=== PATIENT | female | born 1980 | race Caucasian/White ===

== ENCOUNTER → 2017-03-08 | Day surgery (SDC) | payer BC, OTHER ==
[~2017-03-08] MED LIST: ACETAMINOPHEN/HYDROcodone 325 MG/5 MG TAB ONE; LACTATED RINGER'S 1000 ML INJ 1,000 ML ONE; LIDOCAINE 1%/EPINEPHrine 1:100,000 SOLN 20 ML VIAL ONE; MEPERIDINE HCL 25 MG/ML VIAL ONE; MIDAZOLAM HCL 2 MG/2 ML VIAL ONE; ONDANSETRON HCL 4 MG/2 ML VIAL IV PUSH ONE; PREN0.01 PO; PROPOFOL 200 MG/20 ML AMP IV ONE; Z.0.NO CURRENT MEDS; ceFAZolin 2 GM PREMIX 50 ML ONE
--- NOTE | 2017-03-08 12:34 | TN ---
cc: SHASTA CHAPMAN M.D. DATE OF SURGERY 03/08/2017 PREOPERATIVE DIAGNOSIS Right breast microcalcifications. POSTOPERATIVE DIAGNOSIS Right breast microcalcifications. PROCEDURE Right breast needle localized lumpectomy, hidden scar technique. SURGEON Shasta Chapman MD SCREW REMOVER Fiorella Stallworth, BEEF KILLER ANESTHESIA General with laryngeal mask. INDICATIONS A very pleasant 36-year-old woman who found a palpable lump in her right breast. She underwent imaging and microcalcifications pleomorphic in nature were discovered in the right breast at about the 7 o'clock position, 6 cm from the nipple on mammography. They were unable to perform sterotactic biopsy due to the posterior nature of the microcalcifications and therefore she was referred for surgical lumpectomy. INTRAOPERATIVE FINDINGS Successful removal of at least a great majority of the microcalcifications as seen on specimen mammography by Dr. Pineda. ESTIMATED BLOOD LOSS Minimal. NOTE This procedure was assisted by my nurse practitioner. The skill set of an BEEF KILLER was medically necessary to provide appropriate visualization and retraction and improve the efficiency of the surgical procedure. The shale processing technician was at the back table providing appropriate instrumentation while the nurse practitioner directly assisted me through the entirety of the procedure. DESCRIPTION OF PROCEDURE IN DETAIL The patient was identified as February, taken to the operating room and placed in supine position. She had undergone right breast needle localization. Sequential compression devices were placed on the bilateral lower extremities. Following induction of adequate general anesthesia with a laryngeal mask, the right breast was prepped and draped in the usual sterile fashion with Betadine. A time-out procedure was performed. Following completion of the time-out procedure to everyone's satisfaction within the room, the proposed right-sided periareolar incision was made with a marking pen laterally and local anesthetic was placed generously beneath the proposed incision and the proposed area of dissection. The incision was carried out with a scalpel and hemostasis was controlled with electrocautery. Dissection continued posteriorly through vary dense breast tissue until the localization needle was identified within the wound. It was divided within the wound with a wire turning machine operator and a generous portion of tissue around the distal localization needle was from surrounding breast tissues using electrocautery and cutting mode of the electrocautery through the very dense breast tissue. The specimen was marked with a short stitch superior interior, a long stitch lateral posterior and sent for imaging with the above-mentioned results and then to pathology. Palpation within the wound demonstrated no palpably abnormal tissue outside of the very dense, fibrous breast tissue. The wound was irrigated copiously with saline. There was no evidence of bleeding. About 5 cc of local anesthetic was placed within the wound and the lumpectomy cavity was actually very deep within the wound, just superficial to the chest wall musculature. The wound was closed in two layers with 3-0 Vicryl and 4-0 Monocryl in the skin and dressing was applied with Mastisol and 1/2-inch brown Steri-Strips, gauze and Tegaderm. The patient tolerated the procedure without apparent complication. Sponge, needle and instrument counts were correct at the end of the case. MD JOSEFINA Li/ABBY /12:15 PM /12:20 PM
== END | disposition home or self-care (01) ==
LOC: ESDC 08:43
PROVIDERS: ATTEND Surgery Trauma Surgery
DX: D05.11 Intraductal carcinoma in situ of right breast (principal)
CPT/HCPCS: 00400; 19125; 88307; J0690; J2175; J2250; J2405; J3010; J7120; 88361

== ENCOUNTER → 2017-03-22 | Day surgery (SDC) | payer BC ==
[~2017-03-22] MED LIST changes: +HEPARIN SODIUM - IV 10,000 UNITS/10 ML VIAL ONE; +PROPOFOL 100 MG/10 ML INJ IV ONE; -PROPOFOL 200 MG/20 ML AMP IV ONE; +PROPOFOL 500 MG/50 ML BTL IV ONE; +SODIUM CHLORIDE 0.9% INJ 10 ML ONE
--- NOTE | 2017-03-22 17:10 | TN ---
cc: RIC CHAPMAN M.D. DATE OF SURGERY 03/22/2017 PREOPERATIVE DIAGNOSIS Right breast cancer. POSTOPERATIVE DIAGNOSIS Right breast cancer. PROCEDURE Left subclavian Hudqbq-E-Ilei placement with intraoperative fluoroscopy. SURGEON Dr. Ric Chapman ANESTHESIA Local 1% lidocaine with epinephrine plus TIVA. 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 Plans were made for neoadjuvant chemotherapy. Qkhnhq-O-Lbnz placement was indicated. INTRAOPERATIVE FINDINGS Successful placement of left subclavian Infusaport with the tip of the catheter in the distal superior vena cava. Port function was tested. There was easy blood return and forward concentrated heparinized saline flush flowed through the port. Portable chest x-ray is pending. ESTIMATED BLOOD LOSS Less than 5 ml. DESCRIPTION OF PROCEDURE IN DETAIL The patient identified as February, taken to operating room and placed in the supine position. Sequential compression devices were placed on bilateral lower extremities. Following IV sedation by anesthesia, a rolled sheet was placed beneath shoulder blades and the patient was placed in Trendelenburg position. The upper chest and neck were prepped and draped in usual sterile fashion with Betadine. A time-out procedure was performed. Following completion of time-out procedure everyone's satisfaction in the room, 1% lidocaine with epinephrine was placed in the left subclavian position. The patient was placed in Trendelenburg position. The left subclavian vein was entered without difficulty using the introducer needle and the guidewire was advanced through the introducer needle into appropriate position as seen on C-arm fluoroscopy. Infusaport pocket was created. We make an incision in the skin at the guidewire exit site and dissection continued posteriorly to the pectoralis fascia. An Oapbnp-O-Lbsq pocket was developed with surgeon's finger and the Aipghj-U-Betb which had been flushed with heparinized saline was placed into the pocket with two 2-0 Prolene stay sutures. Catheter was cut to appropriate length as seen on C-arm fluoroscopy and a dilator and dilating sheath were placed over the guidewire. The dilator and the guidewire were removed and the catheter was fed through the dilating sheath which was then removed. The tip of the catheter was seen on the distal superior vena cava on C-arm fluoroscopy. Port function was tested and there was easy blood return and forward concentrated heparinized saline flush flow through the port. The Ohphts-E-Tzve pocket was closed in two layers using 3-0 Vicryl and 4-0 Monocryl. Dressing was applied with Mastisol and one-half inch brown Steri-Strips, gauze and Tegaderm. The patient tolerated the procedure without apparent complication. Sponge, needle and instrument counts were correct at the end of the case. MD JOSEFINA Li/KK /1:37 PM /5:00 PM
== END | disposition home or self-care (01) ==
LOC: ESDC 10:38
PROVIDERS: ATTEND Surgery Trauma Surgery
DX: Z45.2 Encounter for adjustment and management of vascular access device (principal); C50.911 Malignant neoplasm of unspecified site of right female breast
CPT/HCPCS: 00532; 36561; 77001; C1788; J0690; J1644; J2175; J2250; J2405; J3010; J7120

== ENCOUNTER → 2017-08-17 | Day surgery (SDC) | payer BC ==
[~2017-08-17] MED LIST changes: +ACETAMINOPHEN 1000 MG/100 ML 100 ML IV ONE; -ACETAMINOPHEN/HYDROcodone 325 MG/5 MG TAB ONE; +BACITRACIN IM FOR SOLN 50,000 UNIT VIAL ONE; +BUPIVACAINE LIPOSOME PF 1.3% 20 ML VIAL ONE; +BUPIVACAINE/EPINEPHRINE 0.25% 50 ML VIAL ONE; +GENTAMICIN SULFATE 80 MG/2 ML VIAL ONE; -HEPARIN SODIUM - IV 10,000 UNITS/10 ML VIAL ONE; +HYDROmorphone HCL PF 2 MG/ML VIAL ONE; +ISOSULFAN BLUE 50 MG/5 ML VIAL SQ ONE; +KETOROLAC TROMETHAMINE 30 MG/ML (IVP) VIAL IV PUSH ONE; -LIDOCAINE 1%/EPINEPHrine 1:100,000 SOLN 20 ML VIAL ONE; +LIDOCAINE 2%/EPINEPHrine PF 1:200,000 20ML SDV ONE; -MEPERIDINE HCL 25 MG/ML VIAL ONE; +MEPERIDINE HCL 50 MG/ML VIAL ONE; +PROMETHAZINE INJ 25 MG/ML VIAL ONE; -PROPOFOL 100 MG/10 ML INJ IV ONE; +PROPOFOL 200 MG/20 ML AMP IV ONE; -PROPOFOL 500 MG/50 ML BTL IV ONE; +SODIUM CHLORIDE 0.9% 20 ML VIAL ONE; -SODIUM CHLORIDE 0.9% INJ 10 ML ONE; +ceFAZolin INJ 1,000 MG VIAL ONE
--- NOTE | 2017-08-17 16:38 | TN ---
cc: ANDREA ANDRADE M.D. DATE OF SURGERY: 08/17/2017 PREOPERATIVE DIAGNOSIS Right breast cancer PROCEDURE: Left prophylactic mastectomy Removal of Port-A-Cath. Bilateral breast construction utilizing a tissue concrete gun operator, as well as a ACell dermal matrix, AlloDerm 6 x 16 thick. SURGEON Andrea Andrade MD FACS ANESTHESIA LMA general plus a total of 120 diluted 1% lidocaine epinephrine. ESTIMATED BLOOD LOSS: Minimal. DRAINS: Two drains per breast, a total of four including 2, 10 mm JPs and 2, 7 mm Rehan-Rachel drains. TISSUE COMPUTER NUMERICAL CONTROL MACHINIST IMPLANT DATA: Tissue concrete gun operator Allergan family, 123 SX total volume 500 capacity volume expanded today was 300 cc per side. SERIAL NUMBERS: Serial number of the right breast implant device [id number] Serial number of the left breast implant device [id number] PROCEDURE Detail she was properly consented, marked properly anesthetized the skin was sterilized with Betadine solution after the local anesthetic was infiltrated as a tumescent type. While Dr. Ric Fay performed on the right mastectomy I performed the following procedures and please refer to the dictation of his procedure. I began by directing attention to the left upper the supraclavicular area where the previous Port-A-Cath was placed. Through the same incision the port was found. The reservoir of the catheter was teased out without any further problems and the reservoir was removed without any difficulties after removing the Prolene suture that was previously placed. With this I proceeded to closed the wound in multiple 2-0 Monocryl suture layers in the dermis and subcu. Attention was directed thereafter to the left breast where utilizing a sun burst type of incision, sparing the areola I proceeded to perform a areola and skin sparing mastectomy. Our landmarks including the parasternal area second third intercostal space anterior axillary line 06/07 intercostal space. We preserved the pectoris major fascia. The specimen was sent to pathology with a superior short and long lateral suture for previous identification. The elevation of the pectoris major muscle took place after assuring meticulous hemostasis and release of the inferomedial fibers. The 6 x 16 AlloDerm was properly sutured at the base of the pectoris major muscle and then the tissue concrete gun operator was introduced. The pocket was closed once the tissue concrete gun operator was introduced utilizing the same 2-0 Monocryl sutures inferiorly and laterally the two drains were brought and secured in place with 2-0 Monocryl sutures expansion was done to 300 cc of that side. The wound was closed in as a pursestring type of procedure utilizing 2-0 Monocryl suture and Dermabond good viability was noticed at the end of this procedure. Attention was directed to the right breast where Dr. Fay has perform finished the mastectomy with the axillary node sampling. I proceeded with the re-closed the anatomical landmarks including the axillary content as well as the anterior axillary line. Same elevation of the pectoris major muscle took place and the release of the inferomedial fibers. I proceeded to perform the fixation of the 6 x 16 AlloDerm at the base of the pectoris major muscle the tissue concrete gun operator was introduced and then closed the pocket utilizing 2-0 Monocryl sutures. I also expanded to 300 cc. The wound was thereafter closed after putting two drains, a 10 and a 7 mm FLORIN respectively and secured utilizing the same 2-0 Monocryl suture. The drains were addressed utilizing a Biopatch and allopatch and Tegaderm and the surgical site was dressed with fluffs as well as tape. Overall the patient the procedure well. She was awakened, extubated in the operating room transferred back to postanesthesia care unit in stable conditions. No complications appreciated. The patient tolerated the procedure fairly well. MD SNEHAL Rico/geovanna /3:27 PM /3:37 PM RENETTA
--- NOTE | 2017-08-17 17:21 | TN ---
cc: SHASTA CHAPMAN M.D., SERGIO M. M.D. DEVERAS, RUBY ANNE E. M.D. Corrected Copy: 08/23/17 DATE OF SURGERY: 08/17/2017 PREOPERATIVE DIAGNOSIS: Locally advanced right breast cancer. POSTOPERATIVE DIAGNOSIS: Locally advanced right breast cancer. PROCEDURE: Injection blue dye right breast, right skin sparing mastectomy, right axillary sentinel lymph node biopsy. SURGEON Dr. Shasta Chapman PHARMACY CONSULTANT: Fiorella OROZCO ANESTHESIA: General. PROCEDURE This procedure was assisted by my nurse practitioner. This medical skill set of PAM was medically necessary to provide improved efficiency and safety and adequate visualization during this surgery. The surgical pathologist was at the back table providing appropriate instrumentation while the nurse practitioner directly assisted me through the entirety of the procedure. INDICATIONS FOR PROCEDURE Very pleasant 36-year-old woman who in February was diagnosed with an invasive poorly differentiated ductal carcinoma of the right breast. Imaging demonstrated findings consistent with diffuse right breast involvement with an increased risk of axillary ishaan involvement. She had Bpuehg-G-Zsvt placed on the left side and had neoadjuvant chemotherapy. Post therapy imaging demonstrated near-complete resolution of enhancement in the breast and no further lymphadenopathy in the right axilla. She presented for definitive surgical treatment with immediate reconstruction with Dr. Berumen as a more. Please refer to Dr. Andrade was the dictation for the details of his portions of the procedures. INTRAOPERATIVE FINDINGS Successful right skin sparing mastectomy with tissue sent with short stitch superior anterior long stitch lateral posterior. Right axillary sentinel lymph nodes five of them removed. #1 ten second count 1153 #2 10-second count 496. #3 10 second count 906. They were sent together with a short stitch on #1 a medium length suture. On #2 a long suture on #3. Neola lymph node #4 had a 10 second count of 2463 and had a suture. #5 was sent with #4 with a 10-second count of 1651 and no suture. ESTIMATED BLOOD LOSS: Was less then [address] Andrade performed concomitantly left mass skin sparing mastectomy with removal of her left port as well as bilateral immediate reconstruction with tissue expanders. DESCRIPTION OF PROCEDURE IN DETAIL The patient identified as February taken to the operating room and placed in the supine position. Sequential compression devices were placed in supine position. Sequential compression devices were placed on bilateral lower extremities. Following induction of adequate general anesthesia with a laryngeal mask a time-out procedure was performed. Following completion time-out procedure everyone's satisfaction within the room the right breast was prepped and the skin with alcohol and a 5 cc of Isosulfan blue dye was injected into the outer right breast. The patient had been marked preoperatively by Dr. Andrade as well as by radiology for sentinel lymph node biopsy. The navigator probe was used to identify increased uptake within the right axilla. There is no uptake in the supraclavicular internal mammary chains. Bilateral breast and axilla were then prepped and draped in usual sterile fashion with Betadine. Dr. Andrade instilled local anesthetic and saline in both breasts. The proposed right breast periareolar Star shaped incision was carried out with scalpel. Hemostasis controlled with electrocautery. The plasma blade and electrocautery used to dissect the breast circumferentially from the subcutaneous tissue. The breast was removed from the underlying pectoralis muscle including the fashion with the specimen medial to lateral using the electrocautery. The breast was removed in its entirety through the small star shaped periareolar incision completing the skin sparing mastectomy. No residual breast tissue was left behind in any significant amount. The specimen was marked as discussed above and sent to pathology for permanent section. Attention was then turned to right axillary sentinel lymph node biopsy. Using the navigator probe and small blue stained lymphatic the sentinel lymph nodes were excised from surrounding tissues using the plasma blade. The specimens were marked as discussed above after 10-second counts were obtained. Following removal of the fourth and fifth lymph node. No additional increased uptake, no palpably abnormal lymph node tissue was identified. No further blue stained lymphatics were visualized. The wound was copiously irrigated with saline, removing any residual free-floating fatty tissue. The skin flaps appeared similar thickness circumferentially. A moistened laparotomy pad was placed within the wound and the patient's care was turned over to Dr. Andrea Andrade. Again, please refer to his dictate dictation for details. The patient tolerated the procedure this point without any evidence of complication. MD JOSEFINA Li/geovanna /4:11 PM /3:23 PM
== END | disposition home or self-care (01) ==
LOC: ESDC 07:26
PROVIDERS: ATTEND Plastic Surgery
DX: C50.911 Malignant neoplasm of unspecified site of right female breast (principal)
CPT/HCPCS: 00400; 00402; 01610; 15777; 19304; 19357; 36590; 38525; 38792; 88307; C1789; C9290; J0131; J0690; J1170; J1580; J1885; J2175; J2250; J2405; J2550; J3010; J7120; Q4116; Q9968; 88309

== ENCOUNTER → 2018-01-18 | Day surgery (SDC) | payer BC ==
[~2018-01-18] MED LIST changes: +ACETAMINOPHEN/HYDROcodone 325 MG/5 MG TAB ONE; +APREPITANT 40 MG CAP ONE; -BUPIVACAINE LIPOSOME PF 1.3% 20 ML VIAL ONE; -HYDROmorphone HCL PF 2 MG/ML VIAL ONE; -ISOSULFAN BLUE 50 MG/5 ML VIAL SQ ONE; +LIDOCAINE 1%/EPINEPHrine 1:100,000 SOLN 50 ML VIAL ONE; -LIDOCAINE 2%/EPINEPHrine PF 1:200,000 20ML SDV ONE; +LORA-392 PO; +MEPERIDINE HCL 25 MG/ML VIAL ONE; -MEPERIDINE HCL 50 MG/ML VIAL ONE; +NEOMYCIN/POLYMYXIN/BACITRACIN OINT 15 GM TUBE ONE; -PREN0.01 PO; -PROMETHAZINE INJ 25 MG/ML VIAL ONE; -Z.0.NO CURRENT MEDS; -ceFAZolin 2 GM PREMIX 50 ML ONE
--- NOTE | 2018-01-18 10:51 | TN ---
cc: Andrea Andrade MD DATE OF SURGERY: 01/18/2018 PREOPERATIVE DIAGNOSIS: Status post bilateral mastectomy with first stage tissue sidehand for reconstruction bilaterally. POSTOPERATIVE DIAGNOSIS: Status post bilateral mastectomy with first stage tissue sidehand for reconstruction bilaterally. PROCEDURE: 1. Removal of tissue expanders, replacement with breast implants - SCX Natrelle Inspira 750, serial number of the right breast implant device [id number], serial number of the left [id number]. 2. Bilateral micro fat injections. SURGEON: Andrea Andrade MD ANESTHESIA: LMA general. PROCEDURE IN DETAIL: She was properly consented, marked, anesthetized, the skin sterilized with Betadine solution, sterile dressing applied, also applied a breast block with a total of 30 cc of 1% lidocaine with epinephrine mixed with 0.25% Marcaine in a 2:1 ratio. Attention was directed to the lower abdomen where after 1000 cc of tumescent solution in which 1000 cc was mixed with 30 cc of 1% plain lidocaine, mixed with 1 cc epinephrine 1:1000, evacuated 1000 cc of fat and it was properly decanted and passed into 60 cc syringes and put on the side table. At this point our attention was directed to the breast through which an inframammary incision was carried out for about 5.5 to 6 cm. A trap door incision was created. The tissue sidehand was deflated and removed. Irrigation with antibiotic solution took place. Lateral capsulorrhaphies were done on the right breast and radial and superior capsulotomies were done in order to assist the significant dermatosclerosis that the patient had after radiation. The skin was isolated with Tegaderm and the implant was introduced. Needed to do some touchups in order to assess and do the best symmetry possible. First round of fat was done before placing the implant and the second one was with the implant in order to achieve best symmetry possible and contouring. While we performed the similar procedure for the left breast, we made the inframammary incision. The tissue sidehand was encountered, deflated and removed. Antibiotic solution was done to irrigate. An inferior capsulorrhaphy was done utilizing 0 silk and multiple locking and running fashion. Superior capsulotomies were done where needed and certainly fat was introduced as well before the implant and after the implant. Total fat placed in the left breast was 180 cc and on the right breast was 90 cc. The patient's wounds were closed utilizing 2-0 Monocryl suture layers on the capsule, Giorgi's fascia, dermis and subcu. After Mastisol, Steri-Strips were applied and a snug brassiere after dressings were applied as well. Good viability of tissue was noted at the end of the case. The patient was awakened and extubated in the operating room and transferred back to the post-anesthesia care unit in stable condition. No complications appreciated. The patient tolerated the procedure fairly well. MD SNEHAL Rico/SUREKHA , 09:31 AM , 10:50 AM MTDD
== END | disposition home or self-care (01) ==
LOC: ESDC 06:20
PROVIDERS: ATTEND Plastic Surgery
DX: Z45.811 Encounter for adjustment or removal of right breast implant (principal); Z45.812 Encounter for adjustment or removal of left breast implant; Z90.13 Acquired absence of bilateral breasts and nipples; Z85.3 Personal history of malignant neoplasm of breast
CPT/HCPCS: 00400; 11970; C1789; J0131; J0690; J1580; J1885; J2175; J2250; J2405; J3010; J7120; J8501

== ENCOUNTER → 2018-03-25 | Outpatient (CLI) | payer BC ==
[~2018-03-25] MED LIST changes: -ACETAMINOPHEN 1000 MG/100 ML 100 ML IV ONE; -ACETAMINOPHEN/HYDROcodone 325 MG/5 MG TAB ONE; +AFIN10TA2 PO; +AFIN5TAB; -APREPITANT 40 MG CAP ONE; +ASPI-183 PO; -BACITRACIN IM FOR SOLN 50,000 UNIT VIAL ONE; +BIOT10TA PO; -BUPIVACAINE/EPINEPHRINE 0.25% 50 ML VIAL ONE; +CALC1TAB87 PO; -GENTAMICIN SULFATE 80 MG/2 ML VIAL ONE; -KETOROLAC TROMETHAMINE 30 MG/ML (IVP) VIAL IV PUSH ONE; -LACTATED RINGER'S 1000 ML INJ 1,000 ML ONE; -LIDOCAINE 1%/EPINEPHrine 1:100,000 SOLN 50 ML VIAL ONE; -MEPERIDINE HCL 25 MG/ML VIAL ONE; -MIDAZOLAM HCL 2 MG/2 ML VIAL ONE; -NEOMYCIN/POLYMYXIN/BACITRACIN OINT 15 GM TUBE ONE; -ONDANSETRON HCL 4 MG/2 ML VIAL IV PUSH ONE; +ONE-TAB PO; -PROPOFOL 200 MG/20 ML AMP IV ONE; -SODIUM CHLORIDE 0.9% 20 ML VIAL ONE; +TAMO20TA6 PO; +TURM500C7 PO; +VITA1000 PO; +VITA10004 PO; +VITA500T83 PO; -ceFAZolin INJ 1,000 MG VIAL ONE
== END ==
LOC: CPRE 13:09
PROVIDERS: ATTEND Obstetrics & Gynecology
DX: C50.911 Malignant neoplasm of unspecified site of right female breast (principal); Z79.810 Long term (current) use of selective estrogen receptor modulators (SERMs)

== ENCOUNTER 2018-04-06 06:00 | Observation (INO) | payer BC ==
[~2018-04-06] VITALS: Ht 177.8 cm; Wt 88.7 kg
[2018-04-06] MEDS ORDERED: APREPITANT 40 MG CAP ONE (06:29)
[2018-04-06] MEDS ORDERED: METOPROLOL TARTRATE 25 MG TAB PO PRN (06:30)
[2018-04-06] MEDS ORDERED: CHLORHEXIDINE GLUCONATE 2 % 1 PACK (2 CLOTHS) TOPICAL PRN (06:30)
[2018-04-06] MEDS ORDERED: POVIDONE IODINE 5% (ANTISEPSIS KIT) 4 APPLICATIONS EACH NARE PRN (06:30)
[2018-04-06] MEDS ORDERED: SODIUM CHLORID 0.9% 500 ML IV PRN (06:30)
[2018-04-06] MEDS ORDERED: LACTATED RINGER'S 1000 ML IV PRN (06:30)
[2018-04-06] MEDS ORDERED: FAMOTIDINE 20 MG/2 ML VIAL ONE (06:35)
[2018-04-06] MEDS ORDERED: KETAMINE HCL 50 MG/5 ML SYRINGE ONE (06:56)
[2018-04-06] MEDS ORDERED: ACETAMINOPHEN 1000 MG/100 ML 100 ML IV ONE (06:56)
[2018-04-06] MEDS ORDERED: PROPOFOL 500 MG/50 ML INJ 100 ML ONE (06:56)
[2018-04-06] MEDS ORDERED: BUPIVACAINE LIPOSOME PF 1.3% 20 ML VIAL ONE (07:15)
[2018-04-06] MEDS ORDERED: METOCLOPRAMIDE HCL 10 MG/2 ML VIAL ONE (07:15)
[2018-04-06] MEDS ORDERED: DEXMEDETOMIDINE HCL 200 MCG/2 ML VIAL ONE (07:20)
[2018-04-06] MEDS ORDERED: ceFAZolin 2 GM PREMIX 50 ML ONE (07:57)
[2018-04-06] MEDS ORDERED: LACTATED RINGER'S 1000 ML INJ 1,000 ML IV SCH (09:59)
[2018-04-06] MEDS ORDERED: diphenhydrAMINE HCL 25 MG CAP PO PRN (10:00)
[2018-04-06] MEDS ORDERED: ONDANSETRON ODT 4 MG TAB PO PRN (10:00)
[2018-04-06] MEDS ORDERED: SODIUM CHLORIDE 0.9% FLUSH 10 ML FLUSH IV FLUSH PRN (10:00)
[2018-04-06] MEDS ORDERED: MEPERIDINE HCL 25 MG/ML VIAL ONE (10:07)
[2018-04-06] MEDS ORDERED: MIDAZOLAM HCL 2 MG/2 ML VIAL ONE (10:15)
[2018-04-06] MEDS ORDERED: *morphine SULFATE 4 MG/ML PERIprocedure ONLY ONE ×2 (10:29→11:01)
[2018-04-06] MEDS ORDERED: DO NOT ADM ANY ANTICOAGULANT DRUGS PRN (11:00)
[2018-04-06] MEDS ORDERED: IOHEXOL 350 MG/ML 10 ML VIAL (for RAD DIAG) IVCONTRAST ONE (11:27)
[2018-04-06] MEDS ORDERED: LORazepam 0.5 MG TAB PO PRN ×2 (11:45→12:00)
[2018-04-06 11:56] VITALS: BP 117/72; PULSE 77; RESP 18; TEMP 98.4; O2SAT 97
[2018-04-06] MEDS ORDERED: LACTATED RINGER'S 1000 ML INJ 1,000 ML IV ONE (12:00)
[2018-04-06] MEDS ORDERED: PROPOFOL 200 MG/20 ML AMP IV ONE (12:00)
[2018-04-06] MEDS ORDERED: NEOSTIGMINE 5 MG/5 ML SYRINGE IV PUSH ONE (12:00)
[2018-04-06] MEDS ORDERED: DEXAMETHASONE SOD PHOS 4 MG/ML VIAL IV ONE (12:00)
[2018-04-06] MEDS ORDERED: ONDANSETRON HCL 4 MG/2 ML VIAL IV ONE (12:00)
[2018-04-06] MEDS ORDERED: VECURONIUM BROMIDE 20 MG VIAL IV ONE (12:00)
[2018-04-06] MEDS ORDERED: STERILE WATER FOR INJECTION 20 ML VIAL IV ONE (12:00)
[2018-04-06] MEDS ORDERED: LIDOCAINE HCL 1% PF 5 ML SYRINGE OTHER ONE (12:00)
[2018-04-06] MEDS ORDERED: SODIUM CHLORIDE 0.9% 10 ML VIAL IV ONE (12:00)
[2018-04-06] MEDS ORDERED: GLYCOPYRROLATE 1 MG/5 ML SYRINGE IV PUSH ONE (12:00)
[2018-04-06] MEDS ORDERED: ROCURONIUM INJ 50 MG/5 ML SYRINGE IV PUSH ONE (12:00)
[2018-04-06] MEDS ORDERED: oxyCODONE/ACETAMINOPHEN 5 MG/325 MG TAB PO PRN (15:00)
[2018-04-06] MEDS: oxyCODONE/ACETAMINOPHEN 5 MG/325 MG TAB PO PRN ×3 (15:02→23:12)
--- NOTE | 2018-04-06 15:10 | MP ---
cc: Xiomara Newman MD DATE OF OPERATION: 04/06/2018 PREOPERATIVE DIAGNOSES: 1. History of carcinoma of the breast. 2. History of tamoxifen use. 3. Menorrhagia. POSTOPERATIVE DIAGNOSES: 1. History of carcinoma of the breast. 2. History of tamoxifen use. 3. Menorrhagia. PROCEDURE: Laparoscopic-assisted vaginal hysterectomy, bilateral salpingo-oophorectomy. ANESTHESIA: General endotracheal intubation. SURGEON: Xiomara Newman MD FINDINGS: Examination under anesthesia, the cervix was parous without lesions. The vagina was clean. The uterus was slightly enlarged, mobile. The adnexa was negative for masses. Laparoscopic exam revealed a mildly enlarged uterus with fairly large vessels, consistent with pelvic congestion syndrome. The left ovary and tube were normal. The right ovary had a 3 cm x 3 cm cyst, which looked simple and was removed intact. The right tube was normal in length and caliber. The posterior and anterior cul-de-sacs were normal. There was some scarring around the bladder. The upper abdomen, the liver, and upper GI system looked normal. COMPLICATIONS: None. COUNTS: Correct. ESTIMATED BLOOD LOSS: 100 mL. FLUIDS: Crystalloids. CONDITION: The patient tolerated the procedure well and went to the recovery room in good condition. INDICATIONS FOR THIS PROCEDURE: This is a young lady, who underwent breast cancer and was recommended by her oncologist to remove her ovaries. Upon careful questioning, she did have very heavy periods before her chemotherapy and she was on tamoxifen. We discussed the risks of the periods coming back and perhaps she really wanted to have the uterus out because of the tamoxifen causing uterine cancer and she was very concerned about that. She came to the operating room for a laparoscopic-assisted vaginal hysterectomy and bilateral salpingo-oophorectomy. PROCEDURE IN DETAIL: The patient was taken to the operating room, identified by name band and verbally. She was given a general anesthetic and carefully placed in the dorsal lithotomy position for vaginal laparoscopic surgery. She was prepped and draped and a Milian catheter was inserted. An examination under anesthesia was carried out with the above findings. Once this had been accomplished, a weighted speculum was placed in the vagina. The anterior lip of the cervix was grasped with a single toothed tenaculum. The Hulka clamp was placed without difficulty. The surgeon changed gloves and paid attention to the umbilical area where a small subumbilical incision was made and using the 5 mm trocar, the abdomen was entered under direct vision without difficulty. A pneumoperitoneum was created with three liters of CO2. Inferolateral to the umbilicus bilaterally, two more 5 mm ports were placed for instrumentation under direct visualization. The entire pelvis and abdomen were carefully inspected with the above findings. The right infundibulopelvic ligament was identified and taken with the harmonic scalpel. This was taken down and half way down the broad ligament. This was repeated on the left side as well. The round ligament was then taken and a bladder flap was created in the usual fashion pushing the bladder out of harms way. The remainder of the broad ligament was taken down with the harmonic scalpel bilaterally and the uterine vessels were skeletonized. Once they had been skeletonized, the uterine vessels were taken with the LigaSure device. Hemostasis was excellent. The Cardinal ligament was then taken down with the harmonic scalpel staying very close to the cervix and pushing the bladder out of harm's way. At this point, all surgical pedicles were inspected and the surgeon turned his attention to the cervix. The weighted speculum was replaced into the vagina and the Hulka clamp removed. The tenaculum was replaced anteriorly and a circumferential incision was made around the cervix without difficulty. Most of the Cardinal ligament had already been taken down. With several clamps of the Sylvia, the specimen was freed up and pulled through the vaginal canal. At this time, the pneumoperitoneum was released. The vagina was closed with 0 Vicryl pop-offs in interrupted fashion with excellent hemostasis. Going back up to the laparoscope then, we inspected all the pedicles and they were completely dry. We removed the pneumoperitoneum and the three 5 mm ports. The incisions were repaired with a single stitch of 4-0 Monocryl in a subcuticular manner. The patient tolerated the procedure well and went to the Recovery Room in good condition. R. MD EARL Vieyra/GILBERT/kalyani , 10:40 AM , 11:18 AM
[2018-04-06 16:05] VITALS: BP 133/79; PULSE 97; RESP 18; TEMP 98.5; O2SAT 97
[2018-04-06] MEDS: IBUPROFEN 600 MG TAB PO PRN ×2 (16:13→23:11)
[2018-04-06] MEDS: DOCUSATE SODIUM 100 MG CAP PO SCH (19:15)
[2018-04-06 20:34] VITALS: BP 131/70; PULSE 96; RESP 18; TEMP 98
[2018-04-06] MEDS ORDERED: SODIUM CHLORIDE 0.9% FLUSH 10 ML FLUSH IV FLUSH SCH (21:00)
[2018-04-06] MEDS ORDERED: ZOLPIDEM TARTRATE 5 MG TAB PO PRN (21:00)
[2018-04-07] VITALS: BP 122/76; PULSE 81; RESP 18; TEMP 98
[2018-04-07] MEDS: oxyCODONE/ACETAMINOPHEN 5 MG/325 MG TAB PO PRN ×3 (03:22→11:31)
[2018-04-07 04:31] VITALS: BP 121/73; PULSE 61; RESP 19; TEMP 97.9
[2018-04-07 05:55] LABS: AUTOMATED NEUTROPHIL # 8.4 TH/MM3 (1.8-7.7); BASOPHIL % 0.1 % (0.0-2.0); EOSINOPHIL % 0.1 % (0.0-4.0); HEMATOCRIT 35.8 % (35.0-46.0); LYMPH % 8.8 % (9.0-44.0); LYMPHOCYTE # 0.9 TH/MM3 (1.0-4.8); MEAN CORPUSCULAR HEMOGLOBIN 30.2 PG (27.0-34.0); MEAN CORPUSCULAR HGB CONC 33.6 % (32.0-36.0); MEAN PLATELET VOLUME 9.6 FL (7.0-11.0); MONO % 6.1 % (0.0-8.0); MONOCYTE # 0.6 TH/MM3 (0-0.9); NEUT % 84.9 % (16.0-70.0); PLATELET COUNT 149 TH/MM3 (150-450); RED BLOOD COUNT 3.98 MIL/MM3 (4.00-5.30); RED CELL DISTRIBUTION WIDTH 13.6 % (11.6-17.2); WHITE BLOOD COUNT 9.9 TH/MM3 (4.0-11.0)
[2018-04-07 06:13] LABS: BICARBONATE 27.8 MEQ/L (21.0-32.0); CALCIUM 8.2 MG/DL (8.5-10.1); CREATININE 0.84 MG/DL (0.50-1.00)
[2018-04-07] MEDS: IBUPROFEN 600 MG TAB PO PRN ×2 (07:20→13:32)
--- NOTE | 2018-04-07 07:50 | HHI.PR ---
Subjective Remarks Doing well, pain is well controlled, eating well. Having some right upper abdominal/chest pain. Hurts with deep breathing The pain began in the middle of the night. Ambulating ok, No SOB or CP Objective Vital Signs Vital Signs Date Time Temp Pulse Resp B/P (MAP) Pulse Ox O2 Delivery O2 Flow Rate FiO2 04/07/18 04:31 97.9 61 19 121/73 (89) 04/07/18 00:00 98.0 81 18 122/76 (91) 04/06/18 20:34 98.0 96 18 131/70 (90) 04/06/18 16:05 98.5 97 18 133/79 (97) 97 04/06/18 11:56 98.4 77 18 117/72 (87) 97 04/06/18 11:15 98.1 65 18 110/62 (78) 100 Nasal Cannula 2 04/06/18 11:00 74 18 113/68 (83) 100 Nasal Cannula 2 04/06/18 10:45 66 18 107/58 (74) 100 Nasal Cannula 2 04/06/18 10:30 72 16 112/64 (80) 100 Nasal Cannula 2 04/06/18 10:15 68 16 117/61 (79) 100 Nasal Cannula 2 04/06/18 10:08 98.0 81 16 116/58 (77) 100 Nasal Cannula 2 I/O 04/06/18 04/06/18 04/06/18 04/07/18 04/07/18 04/07/18 07:00 15:00 23:00 07:00 15:00 23:00 Intake Total 1600 ml Output Total 100 ml 3800 ml 1725 ml Balance 1500 ml -3800 ml -1725 ml Other 1600 ml Output Urine Total 3800 ml 1725 ml Estimated Blood Loss 100 ml # Voids 1 Result Diagram: 04/07/18 0446 04/07/18 0446 Objective Remarks Chest is clear, regular rate and rhythm. Abdomen is soft and non-distended. Incision is clean and dry. Ext no CCE. A/P Assessment and Plan Post Op Day 1 Chest pain with deep breaths. Will get a ct scan to r/o PE. If CT is negative will d/c home. Xiomara Newman MD April 07, 2018 07:50
[2018-04-07 08:00] VITALS: BP 125/79; PULSE 78; RESP 18; TEMP 98.6; O2SAT 98
[2018-04-07] MEDS ORDERED: MORPHINE SULFATE 4 MG/ML INJ IV PUSH ONE (08:00)
[2018-04-07] MEDS: SIMETHICONE 80 MG CHEWABLE TAB CHEW PRN ×2 (08:52→11:37)
[2018-04-07] MEDS ORDERED: EVEROLIMUS PO SCH (09:00)
[2018-04-07] MEDS ORDERED: ASPIRIN 325 MG TAB PO SCH (09:00)
--- NOTE | 2018-04-07 11:33 | RADRPT ---
EXAM DATE: 04/07/2018 11:26 AM EDT AGE/SEX: 37 years / Female INDICATIONS: Right side chest pain status post hysterectomy 1 day ago. CLINICAL DATA: This is the patient's initial encounter. Patient reports that signs and symptoms have been present for 1 day and indicates a pain score of 8/10. MEDICAL/SURGICAL HISTORY: Carcinoma, breast. Mastectomy, bilateral. Hysterectomy. RADIATION DOSE: 10.96 CTDI (mGy) COMPARISON: No prior [facility] exams available for comparison. TECHNIQUE: Volumetric scanning was performed using a multi-row detector CT scanner during bolus infu bradly of 70 ml Omnipaque 350 (iohexol) nonionic water-soluble contrast as a single exam dose. The any a was post processed with a variety of visualization algorithms including full volume maximum intensi ty projection and sliding thin slab reformation. Using automated exposure control and adjustment of the mA and/or kV according to patient size, radiation dose was kept as low as reasonably achievable t o obtain optimal diagnostic quality images. FINDINGS: No filling defects are seen to suggest pulmonary embolic disease. Minimal subsegmental atelectasis at the lung bases. Otherwise no consolidation. No pleural or pericardial effusion. There is no hilar, mediastinal or axillary adenopathy. Bilateral breast augmentation. Upper abdomen reveals free intraperitoneal air with history of hysterectomy performed one day ago. CONCLUSION: 1. Negative for pulmonary embolus. 2. Free intraperitoneal air characteristic of recent hysterectomy. 3. Subsegmental atelectasis at the lung bases. Electronically signed by: Josh Yousif MD 04/07/2018 11:31 AM EDT
[2018-04-07] MEDS: DOCUSATE SODIUM 100 MG CAP PO SCH ×2 (11:37)
[2018-04-07 12:52] VITALS: BP 140/76; PULSE 80; RESP 16; TEMP 98.1; O2SAT 98
== END 2018-04-07 15:20 | disposition home or self-care (01) ==
LOC: HSDC 06:00 → HSDI 10:02 → H1EA 11:27
PROVIDERS: ADMIT Obstetrics & Gynecology; ATTEND Obstetrics & Gynecology
DX: N85.2 Hypertrophy of uterus (principal); N92.0 Excessive and frequent menstruation with regular cycle; N83.02 Follicular cyst of left ovary; N83.01 Follicular cyst of right ovary; N83.8 Other noninflammatory disorders of ovary, fallopian tube and broad ligament; N94.89 Other specified conditions associated with female genital organs and menstrual cycle; R07.89 Other chest pain; Z85.3 Personal history of malignant neoplasm of breast
CPT/HCPCS: 00840; 58552; 71275; 80048; 84703; 85025; 86850; 86900; 86901; 88307; 94150; 96374; C9290; G0378; J0131; J0690; J1100; J2175; J2250; J2270; J2405; J2710; J2765; J7120; Q9967; J8501